=== PATIENT | male | born 1995 | race Caucasian/White ===

== ENCOUNTER 2021-03-17 11:45 | Observation (INO) | payer SELFPAY ==
[~2021-03-17] VITALS: Ht 188 cm; Wt 77.0 kg
--- NOTE | 2021-03-17 11:45 | NUR ---
PT TO ROOM 11 VIA EMS. PT NONVERBAL. SKIN WARM AND DRY MAEW. RESISTIVE TO CALL. VSS.
[2021-03-17 12:32] LABS: HEMATOCRIT 41.5 % (39.0-50.0); HEMOGLOBIN 13.7 g/dl (14.0-18.0); IMMATURE GRANULOCYTES 0.2 % (0.0-5.0); MEAN CELL VOLUME 87.6 fL CALC (80.0-100.0); MEAN CORPUSCULAR HGB 28.9 pG CALC (26.0-32.0); NEUT# 2.8 thou/uL (1.82-7.42); RED BLOOD COUNT 4.74 mill/uL (4.70-6.10); RED CELL DISTRI WIDTH 12.6 % (11.5-15.5)
[2021-03-17 12:45] LABS: ALBUMIN 4.4 g/dL (3.2-5.0); ALKALINE PHOSPHATASE 55 u/l (38-126); ANION GAP 15 (6-22 (CALC)); BILIRUBIN, TOTAL 1.7 mg/dL (0.0-1.4); BUN 20 mg/dL (9-20); BUN/CREATININE RATIO 23 (12-20 (CALC)); CARBON DIOXIDE 26 mmol/l (22-30); CHLORIDE 102 mmol/l (95-108); CREATININE 0.9 mg/dL (0.7-1.3); ETHYL ALCOHOL 0 mg/dl (0-30); GFR > 60 ML/MIN (>=60 (CALC)); GFR FOR AFR.AMER. > 60 ML/MIN (>=60 (CALC)); LIPASE 118 u/l (23-300); POTASSIUM 4.2 mmol/l (3.5-5.1); SGOT/AST 58 u/l (17-59); SODIUM 140 mmol/l (137-146); TOTAL PROTEIN 7.5 g/dL (6.3-8.2)
[2021-03-17 12:46] LABS: ACT PARTIAL THROMBO TIME 25.2 SECONDS (20.0-32.5); PROTHROMBIN TIME 10.1 SECONDS (9.0-12.5)
--- NOTE | 2021-03-17 13:00 | NUR ---
pt sitting up on stretcher, asking for food, advised when he could tell us his name and address and after ct scan of head we would give him something. he shook his head up and down and said okay which was mumbled. eyes are open and follows staff around, has arms close to abdomen and wont put down to sides. advised we would be taking him down to ct shortly and only said i want food.
[2021-03-17 13:19] LABS: URINE BILIRUBIN - DIPSTICK SMALL (NEGATIVE); URINE BLOOD DIPSTICK TRACE-INTACT (NEGATIVE); URINE COLOR YELLOW; URINE GLUCOSE - DIPSTICK NEGATIVE (NEGATIVE); URINE KETONE TRACE mg/dL (NEGATIVE); URINE LEUK ESTERASE NEGATIVE (NEGATIVE); URINE NITRITE - DIPSTICK NEGATIVE (Negative); URINE PH 5.5 (4.5-8.0); URINE PROTEIN - DIPSTICK NEGATIVE (NEG-TRACE); URINE SPECIFIC GRAVITY >=1.030; URINE UROBILINOGEN - DIPSTICK 0.2 E.U./dL (0.2)
--- NOTE | 2021-03-17 13:50 | NUR ---
went to ct scan with pt, pt moved over to ct scan table with jerky movements but on his own. when looked up to ceiling while lying down noticed the murial of sea life and his eyes became really large and was very absorbed in looking at murial, but when asked to lie still said okay. moved back onto stretcher on his own. moving all extremeties. but still not saying his name or any information about him, will just look at you
--- NOTE | 2021-03-17 14:00 | NUR ---
while trying to move stretcher into room 11 stopped stretcher by uc to open door wider to get stretcher in and pt snatched his food tray from counter and started eating the peas and dressing with his fingers. tried to remove tray from pt but tray ripped and spilled on bed and could not get food cleaned up fast enough because he began using hands to stuff food in his mouth from his blanket. became very upset when trying to clean food off so just let him eat it.
--- NOTE | 2021-03-17 14:15 | NUR ---
SPOKE WITH JACKY FROM [facility] ABOUT THE PATIENT WHO IS POSITIVE FOR METH. PATIENT HAD STATED THAT HE HAD TAKEN 4 "BALLS" OF METH.
--- NOTE | 2021-03-17 14:16 | NUR ---
JACKY FROM [facility] STATED THAT ATIVAN WAS APPROPRIATE FOR HALLUCINATIONS OR SEIZURES OR AGITATION. IVF WAS ALSO APPROPRIATE.
--- NOTE | 2021-03-17 15:20 | NUR ---
PT STABLE VSS. IV SITE HEALTHY. PO FLUIDS TAKEN WITHOUT DIFFICULTY ON OWN.
--- NOTE | 2021-03-17 16:15 | NUR ---
PT REPOSITIONS SELF VSS. IV SITE HEALTHY TO LH. SKIN WARM AND DRY. ALERT RESERVED.
--- NOTE | 2021-03-17 17:30 | NUR ---
PT SITTING UP IN BED EATING WITHOUT ASSIST TOLERATES WELL
--- NOTE | 2021-03-17 18:30 | NUR ---
PT MOVED TO ROOM 7 FOR BETTER ACCOMMODATION
--- NOTE | 2021-03-17 18:41 | NUR ---
CALLED REPORT ON PATIENT DAPHNE VALENCIA TO ICU.
--- NOTE | 2021-03-17 18:55 | NUR ---
PT TO ICU VIA WC IN STABLE CONDITION.
--- NOTE | 2021-03-17 19:02 | NUR ---
PT ARRIVES TO UNIT VIA WC ACCOMPANIED BY Rick FONTENOT RN AND Lang RETANA CNA. ADMITTED TO ICU #5.
[2021-03-17 19:10] VITALS: BP 116/62
--- NOTE | 2021-03-17 20:30 | NUR ---
PT APPEARS TO BE SLEEPING, NO APPARENT DISTRESS. RESPIRATIONS REGUALR AND UNLABORED. SB 50'S ON MONITOR. Lang RETANA REMAINS AT BEDSIDE. CALL MOTTA WITHIN REACH.
[2021-03-17 22:00] VITALS: BP 116/70
--- NOTE | 2021-03-17 22:14 | NUR ---
CALL RECEIVED FROM [facility]. UPDATE PROVIDED. NO NEW RECOMMENDATIONS AT THIS TIME.
--- NOTE | 2021-03-17 22:46 | NUR ---
PT WAKES UP. PULLS OUT IV. VOIDS 700ML CLEAR YELLOW URINE IN URINAL. REQUEST SOMETHING TO DRINK AND EAT. WATER AND ICE CREAM CUP PROVIDED. PT WILL NOT ANSWER ANY QUESTIONS WHEN ASKED. JUST STARES AT TALENT ADVISOR.
--- NOTE | 2021-03-17 22:50 | NUR ---
PT PULLS AWAY ARMS AND THRASHES WITH IV ATTEMPTS. STATES "I DON'T WANT IT". IV IINSERTION DEFFERED AT THIS TIME. PT DOES NOT OFFER ANY FURTHER VERBAL COMMUNICATION.
[2021-03-18] VITALS: BP 124/67
--- NOTE | 2021-03-18 00:16 | NUR ---
PT APPEARS TO BE SLEEPING, NO APPARENT DISTRESS. RESPIRATIONS REGUALR AND UNLABORED. SB 50'S ON MONITOR. Lang RETANA REMAINS AT BEDSIDE. CALL MOTTA WITHIN REACH.
--- NOTE | 2021-03-18 01:12 | NUR ---
ASKED PT IF HE WAS HUNGRY, PT NODS IN THE POSITIVE. FROZEN DINNER TRAY PREPARED AND PROVIDED. PT OFFERS NO FURTHER RESPONSE WHEN PROMPTED/QUESTIONED. PT DOES EAT PROVIDED FOOD.
[2021-03-18 02:00] VITALS: BP 110/66
--- NOTE | 2021-03-18 04:14 | NUR ---
PT WAKES, STANDS UP AND ATTEMPS TO GO TO BATHROOM. MONITOR DISCONNECTED ND PT GUIDED TO BATHROOM. PT VOIDS INTO TOILET AND THEN SITS FOR BM AND CLEANS SELF WITH TOILET PAPER. PT GUIDED TO SINK FOR HAND HYGIENE BUT IS RESISTANT. ONCE AT SINK STEPS ON PEDAL TO TURN SINK ON. ATTEMPTS TO PULL THIS NURSES HAND INTO THE WATER. THEN ATTEMPTS TO DRINK FROM SINK. OF NOTE PT HAS WATER AVAILABLE AND HAS BEEN DRINKING THROUGHOUT SHIFT. PT PULLS OFF MONITOR LEADS AND WILL NOT ALLOW INTERNAL SALESPERSON, PULSE-OX, OR NIBP CUFF TO BE APPLIED. SWINGS AT THIS NURSE WHEN ATTEMPTED AND MUTTERS EXPLETIVE. PT LEFT ALONE IN ATTEMPT TO REDUCE STIMULI. PT SITS UP IN BED FOR SEVERAL MINUTES. DRINKS REMAINEDR OF WATER. THROWS EMPTY PITCHER TO GROUND. USES BED CONTROL TO FLATTEN BED. LAYS DOWN AND PULLS COVERS OVER SELF AND CLOSES EYES. PT RESTING CALMLY. THROUGH OUT INTERACTION PT HAS CONTINUED TO NOT RESPOND TO QUESTIONS, SPEAK OR MAKE EYE CONTACT.
--- NOTE | 2021-03-18 04:33 | NUR ---
PT BEGINS TO LAUGH WHILE IN BED FOR SEVERAL SECONDS. STOPS AND APPEARS TO GO BACK TO SLEEP.
--- NOTE | 2021-03-18 04:55 | NUR ---
Luciano GARCIA [employer] ATTEMPTS AM LAB DRAW. PT REFUSES.
--- NOTE | 2021-03-18 06:25 | NUR ---
PT APPEARS TO BE SLEEPING, NO APPARENT DISTRESS. RESPIRATIONS REGUALR AND UNLABORED. CALL MOTTA WITHIN REACH.
--- NOTE | 2021-03-18 08:02 | NUR ---
PT SEEN AWAKE, NOT TALKING. HE WOKE READILY AND IS EATING BREAKFAST NOW. NO DISTRESS NOTED, UNKNOWN WHY PT IS NOT WILLING TO SPEAK HE DOES APPEAR TO HEAR NORMALLY.
--- NOTE | 2021-03-18 10:32 | NUR ---
PT ATE BREAKFAST, RETURNED TO REST. PT ABLE TO USE URINAL WHEN NECESSARY. PT DID NOT INTERACT WITH DR CORTEZ WHEN HE ROUNDED.
[2021-03-18 12:00] VITALS: BP 122/76
--- NOTE | 2021-03-18 13:20 | NUR ---
PT CONTINUES TO NAP IN THE BED, WAS WAKENED FOR LUNCH, ATE WELL. PT NOT INTERACTIVE, NOT STIRRING TO GET OOB.
--- NOTE | 2021-03-18 13:30 | NUR ---
PT AMBULATED INTO HALLWAY WITH STEADY GAIT, POINTED TO FOOD CART. SANDWICH ORDERED. PT STILL NONVERBAL.
--- NOTE | 2021-03-18 17:06 | NUR ---
PT HAS BEEN DISCHARGED. PT NEVER OFFERED ANY INFORMATION TO HIS ADDRESS, THUS IT BECAME NECESSARY TO SEND HIM TO A [facility]OMELESS [facility]. PT DID NOT SIGN HIS PAPERWORK, BUT IT WAS SENT WITH HIM. PT LEAVES IN STABLE CONDITION.
== END 2021-03-18 17:00 | disposition home or self-care (01) | DRG 897 ==
LOC: ED 11:45 → ED-I 17:24 → ED 17:25 → ICU 17:25 → EDBD 17:25 → ICU 03-18 17:00
PROVIDERS: ADMIT Hospitalist; ATTEND Hospitalist
DX: F15.129 Other stimulant abuse with intoxication, unspecified (principal); Z20.822 Contact with and (suspected) exposure to COVID-19
CPT/HCPCS: J1650